=== PATIENT | male | born 1960 | race Caucasian/White ===

== ENCOUNTER → 2016-10-31 | Outpatient (CLI) | payer BC ==
[2016-10-31 05:26] LABS: ABSOLUTE BASOPHILS # (AUTO) 0.1 10^3/uL (0.0-0.2); ABSOLUTE EOSINOPHILS # (AUTO) 0.4 10^3/uL (0.0-0.6); ABSOLUTE LYMPHOCYTES (AUTO) 2.7 10^3/uL (0.5-4.7); ABSOLUTE MONOCYTES (AUTO) 0.7 10^3/uL (0.1-1.4); ABSOLUTE NEUT (AUTO) 4.6 10^3/uL (1.7-8.2); BASOPHILS % (AUTO) 1.2 % (0-2); EOSINOPHILS % (AUTO) 4.4 % (0-6); HEMATOCRIT 37.8 % (37.9-51.0); HEMOGLOBIN 13.2 g/dL (13.5-17.0); HGB HCT DIFFERENCE 1.8; LYMPHOCYTES % (AUTO) 31.5 % (13-45); MEAN CORPUSCULAR HEMOGLOBIN 32.5 pg (27.0-33.4); MEAN CORPUSCULAR HGB CONC 34.9 g/dL (32.0-36.0); MEAN CORPUSCULAR VOLUME 93 fl (80-97); MONOCYTES % (AUTO) 8.2 % (3-13); RED BLOOD COUNT 4.07 10^6/uL (4.35-5.55); RED CELL DISTRIBUTION WIDTH 12.7 % (11.5-14.0); SEGMENTED NEUTROPHILS % (AUTO) 54.7 % (42-78); WHITE BLOOD COUNT 8.4 10^3/uL (4.0-10.5)
[2016-10-31 05:59] LABS: ALANINE AMINOTRANSFERASE 43 U/L (21-72); ALBUMIN 4.2 g/dL (3.5-5.0); ALKALINE PHOSPHATASE 85 U/L (38-126); ANION GAP 12 (5-19); ASPARTATE AMINO TRANSFERASE 35 U/L (17-59); BILIRUBIN,TOTAL 0.6 mg/dL (0.2-1.3); BLOOD UREA NITROGEN 14 mg/dL (7-20); CALCIUM 9.5 mg/dL (8.4-10.2); CARBON DIOXIDE 23 mmol/L (22-30); CHLORIDE 108 mmol/L (98-107); CHOLESTEROL 295.18 mg/dL (0-200); CREATININE RESULT 0.71 mg/dL (0.52-1.25); Direct HDL 44 mg/dL (>40); GLUCOSE 101 mg/dL (75-110); POTASSIUM 4.2 mmol/L (3.6-5.0); SODIUM 142.6 mmol/L (137-145); TOTAL PROTEIN 7.3 g/dL (6.3-8.2); TRIGLYCERIDES 501 mg/dL (<150)
[2016-10-31 06:10] LABS: DIRECT LDL 123 mg/dL (<100)
== END ==
LOC: LAB 05:14
PROVIDERS: ATTEND Internal Medicine
DX: I10 Essential (primary) hypertension (principal); E78.00 Pure hypercholesterolemia, unspecified; Z12.5 Encounter for screening for malignant neoplasm of prostate; Z79.899 Other long term (current) drug therapy
CPT/HCPCS: 36415; 80053; 80061; 84153; 85025

== ENCOUNTER 2017-05-23 19:38 | Observation (INO) | payer OTHER, BC ==
[2017-05-23] MEDS ORDERED: ASPIRIN 81 MG TABLET, CHEWABLE PO ONE (19:41)
[2017-05-23 20:22] LABS: ABSOLUTE BASOPHILS # (AUTO) 0.1 10^3/uL (0.0-0.2); ABSOLUTE EOSINOPHILS # (AUTO) 0.3 10^3/uL (0.0-0.6); ABSOLUTE LYMPHOCYTES (AUTO) 2.6 10^3/uL (0.5-4.7); ABSOLUTE MONOCYTES (AUTO) 0.6 10^3/uL (0.1-1.4); ABSOLUTE NEUT (AUTO) 6.1 10^3/uL (1.7-8.2); BASOPHILS % (AUTO) 0.7 % (0-2); EOSINOPHILS % (AUTO) 3.4 % (0-6); HEMATOCRIT 36.4 % (37.9-51.0); HEMOGLOBIN 12.8 g/dL (13.5-17.0); LYMPHOCYTES % (AUTO) 27.2 % (13-45); MEAN CORPUSCULAR HEMOGLOBIN 32.8 pg (27.0-33.4); MEAN CORPUSCULAR HGB CONC 35.1 g/dL (32.0-36.0); MEAN CORPUSCULAR VOLUME 94 fl (80-97); MONOCYTES % (AUTO) 6.1 % (3-13); RED CELL DISTRIBUTION WIDTH 12.9 % (11.5-14.0); SEGMENTED NEUTROPHILS % (AUTO) 62.6 % (42-78); WHITE BLOOD COUNT 9.7 10^3/uL (4.0-10.5)
--- NOTE | 2017-05-23 20:30 | RADIOLOGY REPORT (SQ) ---
EXAM DESCRIPTION: CHEST SINGLE VIEW COMPLETED DATE/TIME: 05/23/2017 8:20 pm REASON FOR STUDY: chest pain COMPARISON: 10/14/2015 EXAM PARAMETERS: NUMBER OF VIEWS: One view. TECHNIQUE: Single frontal radiographic view of the chest acquired. RADIATION DOSE: NA LIMITATIONS: None. FINDINGS: LUNGS AND PLEURA: No opacities, masses or pneumothorax. No pleural effusion. MEDIASTINUM AND HILAR STRUCTURES: No masses. Contour normal. HEART AND VASCULAR STRUCTURES: Heart normal in size. Normal vasculature. BONES: No acute findings. HARDWARE: None in the chest. OTHER: No other significant finding. IMPRESSION: NO ACUTE RADIOGRAPHIC FINDING IN THE CHEST. TECHNICAL DOCUMENTATION: JOB ID: [id number]
--- NOTE | 2017-05-23 20:34 | ER Document Report ---
ED Medical Screen (RME) - General Chief Complaint: Chest Pain > 30 Stated Complaint: CHEST PAIN Time Seen by Provider: 05/23/17 20:32 Notes: Patient has left-sided chest pain since yesterday. He states it is worse with yawning or a deep breath. He denies any type of infection symptoms such as cough congestion or rhinorrhea. No vomiting or diarrhea. He states he had a heart catheterization about 10 years ago that was unremarkable. TRAVEL OUTSIDE OF THE [place] IN LAST 30 DAYS: No - Related Data Allergies/Adverse Reactions: No Known Drug Allergies Allergy (Verified 05/23/17 19:50) Past Medical History - Past Medical History Cardiac Medical History: Reports: Hx Coronary Artery Disease - HIGH CHOLESTEROL , Hx Hypercholesterolemia, Hx Hypertension Denies: Hx Heart Attack Pulmonary Medical History: Denies: Hx Asthma, Hx Bronchitis, Hx COPD, Hx Pneumonia Neurological Medical History: Denies: Hx Cerebrovascular Accident, Hx Seizures Renal/ Medical History: Denies: Hx Peritoneal Dialysis Musculoskeltal Medical History: Denies Hx Arthritis - Immunizations Hx Diphtheria, Pertussis, Tetanus Vaccination: Yes Physical Exam - Vital signs Vitals: Temp Pulse Resp BP Pulse Ox 99 F 86 14 159/94 H 98 05/23/17 19:52 05/23/17 19:52 05/23/17 19:52 05/23/17 19:52 05/23/17 19:52 Course - Vital Signs Vital signs: Temp Pulse Resp BP Pulse Ox 99 F 86 14 159/94 H 98 05/23/17 19:52 05/23/17 19:52 05/23/17 19:52 05/23/17 19:52 05/23/17 19:52 - Laboratory Result Diagrams: 05/23/17 20:05 05/23/17 20:05 Laboratory results interpreted by me: 05/23/17 20:05 RBC 3.90 L Hgb 12.8 L Hct 36.4 L
[2017-05-23 20:41] LABS: ALANINE AMINOTRANSFERASE 61 U/L (21-72); ALBUMIN 4.4 g/dL (3.5-5.0); ALKALINE PHOSPHATASE 91 U/L (38-126); ANION GAP 14 (5-19); ASPARTATE AMINO TRANSFERASE 39 U/L (17-59); BILIRUBIN,DIRECT 0.3 mg/dL (0.0-0.4); BILIRUBIN,TOTAL 0.4 mg/dL (0.2-1.3); BLOOD UREA NITROGEN 17 mg/dL (7-20); CALCIUM 9.6 mg/dL (8.4-10.2); CARBON DIOXIDE 23 mmol/L (22-30); CHLORIDE 105 mmol/L (98-107); CREATINE KINASE 74 U/L (55-170); CREATININE RESULT 0.69 mg/dL (0.52-1.25); GLUCOSE 148 mg/dL (75-110); SODIUM 142.1 mmol/L (137-145); TOTAL PROTEIN 7.2 g/dL (6.3-8.2)
[2017-05-23 20:52] LABS: CREATINE KINASE MB 1.93 ng/mL (<4.55)
[2017-05-23 20:54] LABS: TROPONIN I < 0.012 ng/mL
--- NOTE | 2017-05-24 01:55 | RADIOLOGY REPORT (SQ) ---
EXAM DESCRIPTION: CTA CHEST COMPLETED DATE/TIME: 05/24/2017 1:32 am REASON FOR STUDY: left chest pain stated pain increases with yawn and deep breath COMPARISON: None. TECHNIQUE: CT scan of the chest performed using helical scanning technique with dynamic intravenous contrast injection. Images reviewed with lung, soft tissue and bone windows. Reconstructed coronal and sagittal MPR images reviewed. Additional 3 dimensional post-processing performed to develop Maximal Intensity Projection images (MD P). All images stored on PACS. All CT scanners at this facility use dose modulation, iterative reconstruction, and/or weight based d osing when appropriate to reduce radiation dose to as low as reasonably achievable (ALARA). [facility]: Dose Right [facility]: CareDose [facility]: Dose Right [facility]: Teradose 4D [facility]: Go Long Wireless CONTRAST TYPE AND DOSE: contrast/concentration: Isovue 370.00 mg/ml; Total Contrast Delivered: 100.0 ml; Total Saline Delivered: 55.0 ml Contrast bolus optimized for the pulmonary arteries. Not diagnostic for the aorta. RENAL FUNCTION: Creatinine 0.7 RADIATION DOSE: Up-to-date CT equipment and radiation dose reduction techniques were employed. CTDIv ol: 31.1 mGy. DLP: 1077 mGy-cm. . LIMITATIONS: None. FINDINGS: LUNGS AND PLEURA: No masses, infiltrates, pneumothorax. No pleural effusions, calcificati ons. Mild mixed predominantly paraseptal emphysema. Small atelectasis and/ or fibrosis of bilateral lung bases with mild right basilar bronchiectasis. AORTA AND GREAT VESSELS: No aneurysm. Contrast bolus not optimized for the aorta. HEART: No pericardial effusion. No significant coronary artery calcifications. PULMONARY ARTERIES: No emboli visualized in the main pulmonary arteries or the segmental branches. HILAR AND MEDIASTINAL STRUCTURES: No identified masses or abnormal nodes. Small coronary arterial ca lcification HARDWARE: None in the chest. UPPER ABDOMEN: Mild left perinephric fat stranding; right kidney is not imaged. THYROID AND OTHER SOFT TISSUES: No masses. No adenopathy. BONES: No acute or significant finding. Mild disc desiccation. 3D MIPS: Confirm above findings. OTHER: No other significant finding. IMPRESSION: No acute cardiopulmonary findings. No evidence of pulmonary emboli. Mild pulmonary emp hysema pattern. Small right basilar fibrosis. COMMENT: Quality ID # [id number]: Final reports with documentation of one or more dose reduction techniques (e.g., Automated exposure control, adjustment of the mA and/or kV according to patient size, use of iterative reconstruction technique) TECHNICAL DOCUMENTATION: JOB ID: [id number] [employer]- All Rights Reserved
[2017-05-24] MEDS ORDERED: IPRATROPIUM/ALBUTEROL 0.5-2.5 MG/3 ML AMPUL NEB ONE (02:24)
--- NOTE | 2017-05-24 02:36 | ER Document Report ---
ED General - General Chief Complaint: Chest Pain > 30 Stated Complaint: CHEST PAIN Time Seen by Provider: 05/23/17 20:32 Mode of Arrival: Ambulatory Information source: Patient Notes: This is a 57-year-old man with a history of hypertension and dyslipidemia presents to the emergency room with chest pain left-sided on and off for the past 24 hours associated with shortness of breath. The patient does state that he was recently traveling to [place] by car on Tuesday and returned the following Tuesday. He states one day later, he started getting left-sided chest pain associated with shortness of breath. The patient has 3 brothers and 3 sisters. He has 1 brother with a history of an [place] (the patient is the oldest brother) and his father at the age of 65 from an [place]. TRAVEL OUTSIDE OF THE [place] IN LAST 30 DAYS: No - HPI Onset: Yesterday Onset/Duration: Gradual Quality of pain: Dull Severity: Moderate Pain Level: 3 Associated symptoms: Chest pain - 15 minutes ago. denies: Fever, Shortness of breath Exacerbated by: Denies Relieved by: Denies Similar symptoms previously: No Recently seen / treated by doctor: No - Related Data Allergies/Adverse Reactions: No Known Drug Allergies Allergy (Verified 05/23/17 19:50) Past Medical History - General Information source: Patient - Social History Smoking Status: Former Smoker Cigarette use (# per day): No - Patient stopped 1 month ago Chew tobacco use (# tins/day): No Smoking Education Provided: No Frequency of alcohol use: None Drug Abuse: None Lives with: Family Family History: Reviewed & Not Pertinent Patient has suicidal ideation: No Patient has homicidal ideation: No - Past Medical History Cardiac Medical History: Reports: Hx Coronary Artery Disease - HIGH CHOLESTEROL , Hx Hypercholesterolemia, Hx Hypertension Denies: Hx Heart Attack Pulmonary Medical History: Denies: Hx Asthma, Hx Bronchitis, Hx COPD, Hx Pneumonia Neurological Medical History: Denies: Hx Cerebrovascular Accident, Hx Seizures Renal/ Medical History: Denies: Hx Peritoneal Dialysis Musculoskeltal Medical History: Denies Hx Arthritis Surgical Hx: Negative - Immunizations Hx Diphtheria, Pertussis, Tetanus Vaccination: Yes Review of Systems - Review of Systems Constitutional: denies: Chills, Fever EENT: No symptoms reported Cardiovascular: Chest pain Respiratory: No symptoms reported Gastrointestinal: No symptoms reported Genitourinary: No symptoms reported Male Genitourinary: No symptoms reported Musculoskeletal: No symptoms reported Skin: No symptoms reported Hematologic/Lymphatic: No symptoms reported Neurological/Psychological: No symptoms reported Physical Exam - Vital signs Vitals: Temp Pulse Resp BP Pulse Ox 99 F 86 14 159/94 H 98 05/23/17 19:52 05/23/17 19:52 05/23/17 19:52 05/23/17 19:52 05/23/17 19:52 Notes: Physical exam: GENERAL: 57-year-old man, alert and oriented 3, no acute distress HEAD: Atraumatic, normocephalic. EYES: Pupils equal round and reactive to light, extraocular movements intact, sclera anicteric, conjunctiva are normal. ENT: TMs normal, nares patent, oropharynx clear without exudates. Moist mucous membranes. NECK: Normal range of motion, supple without obvious mass or JVD. LUNGS: Breath sounds clear to auscultation bilaterally and equal. No wheezes rales or rhonchi. HEART: Regular rate and rhythm without murmurs, rubs or gallops. ABDOMEN: Soft, normoactive bowel sounds. No tenderness to palpation. No guarding, no rebound. No masses appreciated. EXTREMITIES: Normal range of motion, no pitting or edema. No clubbing or cyanosis. NEUROLOGICAL: Cranial nerves II through XII grossly intact. Normal speech, moving all extremities. PSYCH: Normal mood, normal affect. SKIN: Warm, Dry, normal turgor, no rashes or lesions noted. Course - Vital Signs Vital signs: Temp Pulse Resp BP Pulse Ox 99 F 86 20 145/89 H 98 05/23/17 19:52 05/23/17 19:52 05/24/17 01:01 05/24/17 01:01 05/24/17 01:03 - Laboratory Result Diagrams: 05/23/17 20:05 05/23/17 20:05 Laboratory results interpreted by me: 05/23/17 05/23/17 20:05 20:05 RBC 3.90 L Hgb 12.8 L Hct 36.4 L Glucose 148 H - Diagnostic Test Radiology reviewed: Image reviewed, Reports reviewed - CTA shows no pulmonary emboli - EKG Interpretation by Me Rate: Normal Rhythm: NSR - EKG shows normal sinus rhythm with a ventricular rate of 87, no acute ST-T wave changes Discharge - Discharge Clinical Impression: Chest pain Condition: Stable Disposition: ADMITTED OBSERVATION Admitting Provider: Hospitalist - Dr. Quan Unit Admitted: Telemetry Referrals: JEREMIAS RESENDEZ MD [Primary Care Provider] - Follow up as needed
[2017-05-24] MEDS ORDERED: ACETAMINOPHEN 325 MG TABLET PO PRN ×2 (04:43→08:16)
[2017-05-24] MEDS ORDERED: PROMETHAZINE HCL 25 MG TABLET PO PRN (04:43)
[2017-05-24 06:22] LABS: CHOLESTEROL 186.83 mg/dL (0-200); Direct HDL 48 mg/dL (>40); TRIGLYCERIDES 121 mg/dL (<150)
[2017-05-24 06:32] LABS: DIRECT LDL 100 mg/dL (<100)
--- NOTE | 2017-05-24 08:09 | EKG REPORT ---
SEVERITY:- NORMAL ECG - SINUS RHYTHM : Confirmed by: Jay Aldridge MD 24-May-2017 08:08:45
[2017-05-24] MEDS ORDERED: DEXTROSE 50%-WATER 25 GM/50 ML DISP.SYRIN IV PRN ×2 (08:16)
[2017-05-24] MEDS ORDERED: ONDANSETRON HCL INJ/PF 4 MG/2 ML SDV IV PRN (08:16)
[2017-05-24] MEDS ORDERED: GLUCAGON,HUMAN RECOMB 1 MG INJ SUBCUT PRN (08:16)
[2017-05-24] MEDS ORDERED: DEXTROSE 40% GEL 15 GM TUBE PO PRN ×2 (08:16)
[2017-05-24] MEDS ORDERED: IBUPROFEN 800 MG TABLET PO ONE (09:00)
[2017-05-24] MEDS: ASPIRIN 81 MG TABLET, ENT COATED PO SCH (09:38)
[2017-05-24] MEDS: VARENICLINE TARTRATE 1 MG TABLET PO SCH ×2 (09:38→21:16)
--- NOTE | 2017-05-24 13:18 | EKG REPORT ---
SEVERITY:- NORMAL ECG - SINUS RHYTHM : Confirmed by: Jay Aldridge MD 24-May-2017 13:17:59
[2017-05-24] MEDS: IBUPROFEN 800 MG TABLET PO SCH ×2 (13:59→21:16)
--- NOTE | 2017-05-24 16:35 | PDOC H&P ---
History of Present Illness Admission Date/PCP: 05/24/17 08:16 JEREMIAS RESENDEZ MD Patient complains of: Chest pain History of Present Illness: PABLO KHALIL is a 57 year old male who presents with a 24 history of chest pain. Patient reports the chest pain is left sided. It is worse when he takes a breath and but does not radiate. He did recently travel from [place] in a car. He had a CTA that was negative for pulmonary embolism. The patient has a family history of coronary artery disease and had a cardiac catheterization about 10 years ago and it was normal by his report. The patient denied any change with exertion. He did have pain if he twisted. He has recently been working bent over reaching under sink and this may have been a contributing factor. He denies any palpitations. He denies any orthopnea or PND. Patient is admitted for further evaluation of this chest pain. Past Medical History Cardiac Medical History: Reports: Coronary Artery Disease - Patient reports a normal cardiac catheterization about 10 years ago., Hyperlipidema, Hypertension Denies: Myocardial Infarction Pulmonary Medical History: Denies: Asthma, Bronchitis, Chronic Obstructive Pulmonary Disease (COPD), Pneumonia Neurological Medical History: Denies: Seizures Endocrine Medical History: Reports: None Malignancy Medical History: Reports: None GI Medical History: Reports: None Musculoskeltal Medical History: Denies: Arthritis Skin Medical History: Reports: None Psychiatric Medical History: Reports: None Hematology: Denies: Anemia Infectious Medical History: Reports: None Past Surgical History Past Surgical History: Reports: None Social History Information Source: Patient Lives with: Family Smoking Status: Former Smoker Frequency of Alcohol Use: Social Hx Recreational Drug Use: No Drugs: None Hx Prescription Drug Abuse: No - Advance Directive Resuscitation Status: Full Code Family History Family History: Father at age 65 with coronary artery disease. Mother is 80 alive and has coronary artery disease. Parental Family History Reviewed: Yes Children Family History Reviewed: No Sibling(s) Family History Reviewed.: No Medication/Allergy Home Medications: Atorvastatin Calcium [Lipitor 40 mg Tablet] 40 mg PO QHS #30 tablet 09/29/15 Varenicline Tartrate [Chantix 1 Mg Tablet] 1 mg PO Q12 05/24/17 Allergies/Adverse Reactions: No Known Drug Allergies Allergy (Verified 05/23/17 19:50) Review of Systems Constitutional: ABSENT: chills, fever(s), headache(s), weight gain, weight loss Eyes: ABSENT: visual disturbances Ears: ABSENT: hearing changes Cardiovascular: PRESENT: as per HPI, chest pain. ABSENT: dyspnea on exertion, edema, orthropnea, palpitations Respiratory: ABSENT: cough, hemoptysis Gastrointestinal: ABSENT: abdominal pain, constipation, diarrhea, hematemesis, hematochezia, nausea, vomiting Genitourinary: ABSENT: dysuria, hematuria Musculoskeletal: ABSENT: joint swelling Integumentary: ABSENT: rash, wounds Neurological: ABSENT: abnormal gait, abnormal speech, confusion, dizziness, focal weakness, syncope Psychiatric: ABSENT: anxiety, depression, homidical ideation, suicidal ideation Endocrine: ABSENT: cold intolerance, heat intolerance, polydipsia, polyuria Hematologic/Lymphatic: ABSENT: easy bleeding, easy bruising Physical Exam Vital Signs: Temp Pulse Resp BP Pulse Ox 98.6 F 67 16 147/81 H 97 05/24/17 12:13 05/24/17 14:00 05/24/17 12:13 05/24/17 12:13 05/24/17 12:13 General appearance: PRESENT: no acute distress, well-developed, well-nourished Head exam: PRESENT: atraumatic, normocephalic Eye exam: PRESENT: conjunctiva pink, EOMI, PERRLA. ABSENT: scleral icterus Ear exam: PRESENT: normal external ear exam Mouth exam: PRESENT: moist, tongue midline Neck exam: ABSENT: carotid bruit, JVD, lymphadenopathy, thyromegaly Respiratory exam: PRESENT: clear to auscultation rohan. ABSENT: rales, rhonchi, wheezes Cardiovascular exam: PRESENT: RRR. ABSENT: diastolic murmur, rubs, systolic murmur Pulses: PRESENT: normal dorsalis pedis pul Vascular exam: PRESENT: normal capillary refill GI/Abdominal exam: PRESENT: normal bowel sounds, soft. ABSENT: distended, guarding, mass, organolmegaly, rebound, tenderness Rectal exam: PRESENT: deferred Extremities exam: PRESENT: full ROM. ABSENT: calf tenderness, clubbing, pedal edema Neurological exam: PRESENT: alert, awake, oriented to person, oriented to place , oriented to time, oriented to situation, CN II-XII grossly intact. ABSENT: motor sensory deficit Psychiatric exam: PRESENT: appropriate affect Skin exam: PRESENT: dry, intact, warm. ABSENT: cyanosis, rash Results Laboratory Results: 05/24/17 12:18 Troponin I < 0.012 EKG Comments: No acute EKG changes. Impressions: Chest X-Ray 05/23/17 19:41 IMPRESSION: NO ACUTE RADIOGRAPHIC FINDING IN THE CHEST. Chest/Abdomen CTA 05/24/17 00:44 IMPRESSION: No acute cardiopulmonary findings. No evidence of pulmonary emboli. Mild pulmonary emphysema pattern. Small right basilar fibrosis. Assessment & Plan - Diagnosis (1) Chest pain Is this a current diagnosis for this admission?: Yes Plan: The patient's chest pain appears to be related to movement. Most likely represents costochondritis. He does have some risk factors with hypertension and hyperlipidemia and family history. Because of that we will monitor on telemetry and obtain a stress test to rule out coronary artery disease. (2) Hypertension Is this a current diagnosis for this admission?: Yes Plan: Patient is not chronically on antihypertensives. We will continue to monitor. (3) Hypercholesteremia Is this a current diagnosis for this admission?: Yes Plan: Continue with Lipitor. - Time Time Spent: 50 to 70 Minutes - Plan Summary Plan Summary: We will admit as observation. I anticipate this require less than a 2 midnight hospital stay.
[2017-05-24] MEDS ORDERED: ATORVASTATIN CALCIUM 40 MG TABLET PO SCH (22:00)
[2017-05-25] MEDS: IBUPROFEN 800 MG TABLET PO SCH ×2 (06:01→13:34)
[2017-05-25] MEDS: ASPIRIN 81 MG TABLET, ENT COATED PO SCH (10:51)
[2017-05-25] MEDS: VARENICLINE TARTRATE 1 MG TABLET PO SCH (10:51)
[2017-05-25] MEDS ORDERED: AMINOPHYLLINE INJ/PF 250 MG/10 ML SDV IV ONE (11:27)
[2017-05-25] MEDS ORDERED: REGADENOSON INJ 0.4 MG/5 ML DISP.SYRIN IV ONE (11:27)
--- NOTE | 2017-05-25 13:20 | DRAGON STRESS TEST REPORT ---
INTRAVENOUS LEXISCAN CARDIOLITE STRESS TEST USING SINGLE PHOTON EMMISION COMPUTERIZED TOMOGRAPHIC. DATE OF PROCEDURE: May 25, 2017 INDICATION : Chest pain CARDIAC RISK FACTORS: Diabetes, hypertension, dyslipidemia RESTING EKG: Sinus rhythm, no baseline ST-T wave changes noted STRESS EKG: No significant changes noted with LexiScan bolus REASON FOR TERMINATION: Protocol. PROCEDURE REPORT: Baseline heart rate 76 beats per minute with blood pressure of 142/92. Patient had no significant complaints. Heart rate at 2 minutes post bolus 104 with a blood pressure of 124/79. 3 minutes post bolus heart rate 85 with blood pressure of 143/81. No significant EKG changes were noted. Patient had no significant complaints during the procedure or postprocedure. Patient injected with Aminophyllin 75 mg at 3 minutes or later after Lexiscan bolus. CONCLUSIONS: Normal EKG and hemodynamic response to IV LexiScan. NUCLEAR DATA: At rest the patient was given 13.49 millicuries of technetium 99 sestamibi injected intravenously. As per protocol rest gated SPECT images were obtained. Subsequently the patient was given intravenous LexiScan at a dose of 0.4 mg in 5 mL intravenously, followed by flush with normal saline. Subsequently the stress dose of 45.0 millicuries of technetium 99 sestamibi was injected intravenously. As per protocol stress gated images were obtained. NUCLEAR INTERPRETATION: Both raw and processed data were used for interpretation. Visual, qualitative, computer-generated quantitative data was used. There was good myocardial uptake of technetium compound. Motion artifact and soft tissue attenuations were noted. Increased visceral uptake was noted. No definitive areas of transient perfusion defect noted. No definitive areas of fixed perfusion defect or scars noted. EKG gated imaging showed LV EF at 65 %, rest and stress gated EF similar visually. T. I D. ratio was 1.00. Lung heart ratio noted to be within normal limits 0.31. No significant extracardiac and abnormal radiotracer activities were noted. RV free wall uptake was noted to be mildly increased. IMPRESSION: Also refer to comments under nuclear interpretation. Also test results needs to be interpreted in the context of pretest probability. 1. There is no definitive scintigraphic evidence of LexiScan induced myocardial ischemia. 2. There is no definitive scintigraphic evidence of myocardial infarction/scar. 3. EKG gated imaging shows left ventricular ejection fraction of approximately 65 %. 4. Clinical correlation requested as occasionally single vessel disease or balanced ischemia could be missed. In approximately 10% of the cases Lexiscan may not cause adequate vasodilatory stress. RECOMMENDATIONS: Aggressive risk factor modification, medical therapy. Clinical correlation with echocardiogram derived ejection fraction. Inability to exercise by itself can lead to increased cardiovascular event risks. Consider cardiology consultation and or follow-up if clinically indicated. I AM AVAILABLE FOR CARDIOLOGY CONSULTATION AND FOLLOWUP IF REQUESTED BY PMD Ha Cruz M.D., WILLIAM Central Office Equipment Engineer medical office assistant instructor, Board certified in cardiovascular diseases, Nuclear cardiology, Echocardiography Cardiac CT and cardiac MRI Ph. [phone] [facility]
[2017-05-25 13:56] VITALS: BP 146/99
--- NOTE | 2017-05-25 14:20 | PDOC DISCHARGE SUMMARY ---
General - Admit/Disc Date/PCP Admission Date/Primary Care Provider: 05/24/17 08:16 JEREMIAS RESENDEZ MD Discharge Date: 05/25/17 - Discharge Diagnosis (1) Chest pain Is this a current diagnosis for this admission?: Yes Summary: Secondary to musculoskeletal pain (2) Hypertension Is this a current diagnosis for this admission?: Yes (3) Hypercholesteremia Is this a current diagnosis for this admission?: Yes - Additional Information Resuscitation Status: Full Code Discharge Diet: Regular Discharge Activity: Activity As Tolerated Home Medications: Atorvastatin Calcium [Lipitor 40 mg Tablet] 40 mg PO QHS #30 tablet 09/29/15 Varenicline Tartrate [Chantix 1 mg Tablet] 1 mg PO Q12 05/24/17 Aspirin [Ecotrin 81 mg EC Tablet] 81 mg PO DAILY tabec 05/25/17 History of Present Illness History of Present Illness: PABLO KHALIL is a 57 year old male who presents with a 24 history of chest pain. Patient reports the chest pain is left sided. It is worse when he takes a breath and but does not radiate. He did recently travel from [place] in a car. He had a CTA that was negative for pulmonary embolism. The patient has a family history of coronary artery disease and had a cardiac catheterization about 10 years ago and it was normal by his report. The patient denied any change with exertion. He did have pain if he twisted. He has recently been working bent over reaching under sink and this may have been a contributing factor. He denies any palpitations. He denies any orthopnea or PND. Patient is admitted for further evaluation of this chest pain. Hospital Course Hospital Course: 57-year-old male admitted with atypical chest pain. Patient was monitored on telemetry and had no cardiac arrhythmias. Patient had negative troponins and then underwent a Cardiolite stress test. The stress test showed no evidence for reversible ischemia. Patient was started on ibuprofen because of the presumed musculoskeletal nature of the pain and is completely resolved the pain. Patient is instructed to use ibuprofen as needed. His other medical problems were stable during this hospitalization. Patient is discharged home. Physical Exam Vital Signs: Temp Pulse Resp BP Pulse Ox 98.3 F 91 16 146/99 H 98 05/25/17 13:48 05/25/17 13:48 05/25/17 13:48 05/25/17 13:48 05/25/17 13:48 Intake & Output 05/24/17 05/25/17 05/26/17 06:59 06:59 06:59 Intake Total 940 591 Balance 940 591 Weight 106 kg General appearance: PRESENT: no acute distress Eye exam: PRESENT: conjunctiva pink. ABSENT: scleral icterus Ear exam: PRESENT: normal external ear exam Mouth exam: PRESENT: moist, tongue midline Neck exam: ABSENT: JVD Respiratory exam: PRESENT: clear to auscultation rohan. ABSENT: rales, rhonchi, wheezes Cardiovascular exam: PRESENT: RRR. ABSENT: diastolic murmur, rubs, systolic murmur GI/Abdominal exam: PRESENT: normal bowel sounds, soft. ABSENT: distended, guarding, mass, organolmegaly, rebound, tenderness Extremities exam: ABSENT: calf tenderness, clubbing, pedal edema Neurological exam: PRESENT: alert, awake, oriented to person, oriented to place , oriented to time, oriented to situation, CN II-XII grossly intact. ABSENT: motor sensory deficit Psychiatric exam: PRESENT: appropriate affect Skin exam: PRESENT: dry, intact, warm. ABSENT: cyanosis, rash Results Laboratory Results: 05/24/17 12:18 Troponin I < 0.012 Impressions: Chest X-Ray 05/23/17 19:41 IMPRESSION: NO ACUTE RADIOGRAPHIC FINDING IN THE CHEST. Chest/Abdomen CTA 05/24/17 00:44 IMPRESSION: No acute cardiopulmonary findings. No evidence of pulmonary emboli. Mild pulmonary emphysema pattern. Small right basilar fibrosis. Qualifiers PATEINT BEING DISCHARGED WITH ANY OF THE FOLLOWING DIAGNOSIS?: No Plan Discharge Plan: Patient is discharged home in stable condition. Follow-up with primary care in 2 weeks. Time Spent: Less than 30 Minutes
== END 2017-05-25 14:25 | disposition home or self-care (01) ==
LOC: ER 19:38 → UNDOADMOB 05-24 02:41 → EH 05-24 02:41 → 4W 05-24 05:04 → EH 05-24 05:04 → 4W 05-24 08:16
PROVIDERS: ADMIT Family Medicine; ATTEND Family Medicine
PROC: 3E0F7GC Introduction of Other Therapeutic Substance into Respiratory Tract, Via Natural or Artificial Opening (ICD-10-PCS; principal; 2017-05-23)
DX: R07.89 Other chest pain (principal); I10 Essential (primary) hypertension; E78.00 Pure hypercholesterolemia, unspecified; R06.02 Shortness of breath; I25.10 Atherosclerotic heart disease of native coronary artery without angina pectoris; Z79.82 Long term (current) use of aspirin; Z79.899 Other long term (current) drug therapy; Z82.49 Family history of ischemic heart disease and other diseases of the circulatory system; Z87.891 Personal history of nicotine dependence
CPT/HCPCS: 93005 ×2; 94640; 99285; 36415 ×2; 82553; 82550; 85025; 80053; 84484 ×2; 80061; 93017; 71010; 78452; 71275; 93010 ×2; G0378 ×2; A9500; J2785; J3490 ×2; J0280; J7620; Q9969

== ENCOUNTER 2019-10-19 20:58 | Emergency (ER) | payer OTHER, BC ==
[2019-10-19] MEDS ORDERED: ONDANSETRON HCL INJ/PF 4 MG/2 ML SDV IV ONE (21:44)
[2019-10-19] MEDS ORDERED: MORPHINE SULFATE 10 MG/ML INJ IV ONE (21:45)
--- NOTE | 2019-10-19 21:47 | ER Document Report ---
ED Medical Screen (RME) - General Chief Complaint: Abdominal Pain Stated Complaint: NAUSEA,HEADACHE,ABDOMINAL PAIN Time Seen by Provider: 10/19/19 21:39 Primary Care Provider: JEREMIAS RESENDEZ MD [Primary Care Provider] - Follow up as needed Notes: HPI: 59-year-old male presenting to the emergency department complaining of mid abdominal pain that began this morning with nausea and vomiting. No diarrhea. No definite fever but has had chills. No history of abdominal surgeries per the patient I have greeted and performed a rapid initial assessment of this patient. A comprehensive ED assessment and evaluation of the patient, analysis of test results and completion of the medical decision making process will be conducted by additional ED providers PHYSICAL EXAMINATION: GENERAL: Well-appearing, well-nourished and in mild acute distress. HEAD: Atraumatic, normocephalic. EYES: sclera anicteric, conjunctiva are normal. ENT: Slightly dry mucous membranes. NECK: Normal range of motion LUNGS: Normal work of breathing, clear to auscultation HEART: 2+ radial pulses bilaterally, regular rate and rhythm ABD: limited by positioning for exam in triage. Mild abdominal pain through the lower abdomen and periumbilical region on palpation EXTREMITIES: no pitting or edema. No cyanosis. NEUROLOGICAL: No focal neurological deficits. Moves all extremities spontaneously and on command. PSYCH: Normal mood, normal affect. SKIN: Warm, Dry, normal turgor, no rashes or lesions noted. TRAVEL OUTSIDE OF THE [place] IN LAST 30 DAYS: No - Related Data Allergies/Adverse Reactions: No Known Drug Allergies Allergy (Verified 05/23/17 19:50) Past Medical History - Past Medical History Cardiac Medical History: Reports: Hx Coronary Artery Disease - Patient reports a normal cardiac catheterization about 10 years ago., Hx Hypercholesterolemia, Hx Hypertension Denies: Hx Heart Attack Pulmonary Medical History: Denies: Hx Asthma, Hx Bronchitis, Hx COPD, Hx Pneumonia Neurological Medical History: Denies: Hx Cerebrovascular Accident, Hx Seizures Renal/ Medical History: Denies: Hx Peritoneal Dialysis Musculoskeltal Medical History: Denies Hx Arthritis - Immunizations Hx Diphtheria, Pertussis, Tetanus Vaccination: Yes Physical Exam - Vital signs Vitals: Temp Pulse Resp BP Pulse Ox 99.2 F 112 H 20 146/81 H 95 10/19/19 21:16 10/19/19 21:16 10/19/19 21:16 10/19/19 21:16 10/19/19 21:16 Course - Vital Signs Vital signs: Temp Pulse Resp BP Pulse Ox 99.2 F 112 H 20 146/81 H 95 10/19/19 21:16 10/19/19 21:16 10/19/19 21:16 10/19/19 21:16 10/19/19 21:16 Doctor's Discharge - Discharge Referrals: JEREMIAS RESENDEZ MD [Primary Care Provider] - Follow up as needed
[2019-10-19 22:25] LABS: HEMATOCRIT 40.9 % (37.9-51.0); HEMOGLOBIN 13.8 g/dL (13.5-17.0); MEAN CORPUSCULAR HEMOGLOBIN 30.7 pg (27.0-33.4); MEAN CORPUSCULAR HGB CONC 33.8 g/dL (32.0-36.0); MEAN CORPUSCULAR VOLUME 91 fl (80-97); PLATELET COUNT 279 10^3/uL (150-450); RED CELL DISTRIBUTION WIDTH 13.4 % (11.5-14.0)
[2019-10-19 22:45] LABS: ALBUMIN 4.6 g/dL (3.5-5.0); ALKALINE PHOSPHATASE 87 U/L (38-126); ANION GAP 13 (5-19); ASPARTATE AMINO TRANSFERASE 33 U/L (17-59); BILIRUBIN,DIRECT 0.3 mg/dL (0.0-0.4); BILIRUBIN,TOTAL 0.6 mg/dL (0.2-1.3); BLOOD UREA NITROGEN 15 mg/dL (7-20); CALCIUM 9.5 mg/dL (8.4-10.2); CARBON DIOXIDE 23 mmol/L (22-30); CHLORIDE 105 mmol/L (98-107); GLUCOSE 160 mg/dL (75-110); POTASSIUM 4.3 mmol/L (3.6-5.0); TOTAL PROTEIN 8.4 g/dL (6.3-8.2)
[2019-10-19 22:46] LABS: ABSOLUTE LYMPHOCYTES# (MANUAL) 0.3 10^3/uL (0.5-4.7); ABSOLUTE MONOCYTES # (MANUAL) 0.7 10^3/uL (0.1-1.4); BAND NEUTROPHILS % (MANUAL) 1 % (3-5); BASOPHILS % (MANUAL) 0 % (0-2); EOSINOPHILS % (MANUAL) 1 % (0-6); LYMPHOCYTES % (MANUAL) 2 % (13-45); MONOCYTES % (MANUAL) 5 % (3-13); SEGMENTED NEUTROPHILS % (MAN) 91 % (42-78); TOTAL CELLS COUNTED 100
[2019-10-19 22:46] LABS: APPEARANCE,URINE CLEAR; BILIRUBIN,URINE NEGATIVE (NEGATIVE); COLOR,URINE YELLOW; GLUCOSE, URINE NEGATIVE (NEGATIVE); KETONES,URINE NEGATIVE (NEGATIVE); LEUKOCYTE ESTERASE,URINE NEGATIVE (NEGATIVE); NITRITE,URINE NEGATIVE (NEGATIVE); PROTEIN,URINE 30 mg/dL (NEGATIVE); URINE SPECIFIC GRAVITY 1.014; UROBILINOGEN,URINE NEGATIVE mg/dL (<2.0)
[2019-10-19 22:48] LABS: PLATELET COMMENT ADEQUATE; RBC MORPHOLOGY COMMENT NORMO-CYTIC/CHROMIC
--- NOTE | 2019-10-19 23:59 | RADIOLOGY REPORT (SQ) ---
EXAM DESCRIPTION: [facility]: CT ABDOMEN PELVIS WITH IV CONTRAST CLINICAL HISTORY: 59 years Male; abd pain; TECHNIQUE: CT of the abdomen and pelvis using intravenous contrast. All CT scans at this facility use dose modulation, iterative reconstruction, and/or weight based dosing when appropriate to reduce radiation dose to as low as reasonably achievable. COMPARISON: None. FINDINGS: Abdomen: Liver:No focal lesions. No intrahepatic ductal distention. Gallbladder:Nondistended Pancreas:Within normal limits Spleen:Within normal limits Right kidney: 1.4 cm cyst at the medial margin of the midportion. No hydronephrosis. Left kidney: 9 mm upper pole cyst. 10 mm lower pole cyst. No hydronephrosis. Adrenal glands:Within normal limits Vascular structures: Moderate atherosclerotic plaque. Distal abdominal aortic diameter is 3.3 cm. No retroperitoneal hematoma or adenopathy. Pelvis: Small bowel:No significant distention. Appendix:Within normal limits Colon:No distention or acute pericolonic edema. No free intraperitoneal fluid or air. Bones: No acute bone findings. Bladder: Unremarkable. No pelvic mass or adenopathy. IMPRESSION: 1. No acute findings 2. 3.3 cm abdominal aortic aneurysm. Recommend follow-up every 3 years.
[2019-10-20] MEDS ORDERED: NORMAL SALINE 1000 ML 1,000 ML IV ONE (01:42)
--- NOTE | 2019-10-20 01:42 | ER Document Report ---
Entered by RAÚL SALEH SCRIBE 10/20/19 0109 Acting as scribe for:KATHARINA BOBO IV, MD ED GI/ - General Chief Complaint: Abdominal Pain Stated Complaint: NAUSEA,HEADACHE,ABDOMINAL PAIN Time Seen by Provider: 10/19/19 21:39 Primary Care Provider: JEREMIAS RESENDEZ MD [Primary Care Provider] - Follow up as needed Notes: This 59 year old male patient presents to the emergency department today with complaints of nausea with associated diarrhea since waking up this morning. Patient states that he has felt like "something wanted to come up but nothing would", stating that he has not vomited today. Patient states that he went to take a nap this afternoon and after laying down he began getting abdominal cramping like he had to have a bowel movement. Patient states that when he went to the bathroom it was "just liquid coming out". Patient reports multiple episodes of diarrhea. Patient denies any abdominal pain. Patient complains of cold sweats and a headache as well. TRAVEL OUTSIDE OF THE [place] 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 denies: Abdominal pain, Vomiting Genitourinary: No symptoms reported Male Genitourinary: No symptoms reported Musculoskeletal: No symptoms reported Skin: No symptoms reported Hematologic/Lymphatic: No symptoms reported Neurological/Psychological: See HPI, Headaches -: Yes All other systems reviewed and negative Physical Exam - Vital signs Vitals: Temp Pulse Resp BP Pulse Ox 99.2 F 112 H 20 146/81 H 95 10/19/19 21:16 10/19/19 21:16 10/19/19 21:16 10/19/19 21:16 10/19/19 21:16 Interpretation: Normal - General General appearance: Appears well, Alert - HEENT Head: Normocephalic, Atraumatic Eyes: Normal Pupils: PERRL - Respiratory Respiratory status: No respiratory distress Chest status: Nontender Breath sounds: Normal Chest palpation: Normal - Cardiovascular Rhythm: Regular Heart sounds: Normal auscultation Murmur: No - Abdominal Inspection: Other - No pulsatile masses. No aaortic bruits. Distension: No distension Bowel sounds: Hyperactive Tenderness: Nontender Organomegaly: No organomegaly - Back Back: Normal, Nontender - Extremities General upper extremity: Normal inspection, Nontender. No: Edema General lower extremity: Normal inspection, Nontender. No: Edema - Neurological Neuro grossly intact: Yes Cognition: Normal Orientation: AAOx4 [place] Coma Scale Eye Opening: Spontaneous [place] Coma Scale Verbal: Oriented [place] Coma Scale Motor: Obeys Commands [place] Coma Scale Total: 15 Speech: Normal - Psychological Associated symptoms: Normal affect, Normal mood - Skin Skin Temperature: Warm Skin Moisture: Dry Skin Color: Normal Course - Re-evaluation Re-evalutation: 10/20/19 01:44 Findings of ED MSE, including finding of new 3.3 cm abdominal aortic aneurysm and need for every 6 month ultrasound follow-up discussed with patient. All questions were answered prior to discharge. Emergency signs and symptoms, reasons to return to the emergency department discussed with patient. - Vital Signs Vital signs: Temp Pulse Resp BP Pulse Ox 99.2 F 112 H 25 H 121/97 H 94 10/19/19 21:16 10/19/19 21:16 10/20/19 01:01 10/20/19 01:01 10/20/19 01:01 - Laboratory Result Diagrams: 10/19/19 22:00 10/19/19 22:00 Laboratory results interpreted by me: 10/19/19 10/19/19 10/19/19 22:00 22:00 22:05 WBC 14.0 H Seg Neuts % (Manual) 91 H Band Neutrophils % 1 L Lymphocytes % (Manual) 2 L Abs Neuts (Manual) 12.9 H Abs Lymphs (Manual) 0.3 L Glucose 160 H Total Protein 8.4 H Urine Protein 30 H - Diagnostic Test Radiology reviewed: Reports reviewed - EKG Interpretation by Me Additional EKG results interpreted by me: 10/20/19 01:47 EKG obtained on 10/19/2019 at 2310 hrs. was reviewed by this MD. Findings: Sinus tachycardia, rate 100, normal axis, P waves received QRS complexes, QRS complexes appear narrow, there are no obvious patterns of ST segment elevation or depression present to suggest acute myocardial ischemia or infarction. Impression sinus tachycardia with nonspecific ST segments. Discharge - Discharge Clinical Impression: Viral gastroenteritis, Abdominal aortic aneurysm (AAA) 3.0 cm to 5.5 cm in diameter in male Condition: Good Disposition: HOME, SELF-CARE Instructions: Antinausea Medication ([facility]), Gastroenteritis (adult) ([facility]) Additional Instructions: Return to the Emergency Department without delay if any worse. Aortic Aneurysm We have found an aortic aneurysm. This is a dilation of the aorta. About 1 of every 50 people develop an aortic aneurysm. The aneurysm can be dangerous if it begins to expand, or ruptures. At this time, there's no immediate danger. If an aortic aneurysm is small (less than two inches in width), we can just check the aneurysm again in a few months. Usually, we do this with an ultrasound or CT scan. If the aneurysm is large, the danger of rupture increases dramatically. Rupture is usually fatal. So large aneurysms are fixed with surgery. We'll arrange for you to see a specialist for repair of your aneurysm. Return at once if you develop abdominal pain, back pain, or lightheadedness, or if you feel a new mass in your abdomen. HOME CARE INSTRUCTIONS & INFORMATION: Thank you for choosing us for your medical needs. We hope you're satisfied with the care you received. After you leave, you must properly care for your problem and, at the same time, observe its progress. Any condition can change. Some illnesses can change rapidly over hours or days. If your condition worsens, return to the Emergency Department or see your physician promptly. ABOUT YOUR X-RAYS AND EKG'S: If you had an EKG or X-rays taken, they have been read by the Emergency Physician. The X-rays and EKG's will also be read by a Radiologist or Warehouse Checker within 24 hours. If discrepancies are noted, you will be notified by telephone. Please be certain the ED has a correct telephone number & address where you can be reached. Also, realize that some fractures or abnormalities do not show up on initial X-rays. If your symptoms continue, see your physician. ABOUT YOUR LABORATORY TEST: If you had laboratory tests, the results have been reviewed by the Emergency Physician. Some test results (for example cultures) may not be available for several days. You will be contacted if any test result shows you need additional treatment. Please be certain the ED has a correct telephone number and address where you can be reached. ABOUT YOUR MEDICATIONS: You will receive instructions on how to take your medicine on the prescription label you receive. Additional information may be provided by the Pharmacy. If you have questions afterwards, call the ED for clarification or further instructions. Some prescribed medications may cause drowsiness. Do not perform tasks such as driving a car or operating machinery without consulting your Pharmacist. If you feel you need a refill of pain medication, your condition will need re-evaluation. Please do not call for a refill of any medication. ABOUT YOUR SIGNATURE: Signature of this document acknowledges to followin. Understanding that you received emergency treatment and that you may be released before al medical problems are known or treated. Please be certain the ED has a correct phone number & address where you can be reached. 2. Acknowledgement that you will arrange for follow-up care as recommended. 3. Authorization for the Emergency Physician to provide information to your follow-up Physician in order to maximize your care. AT ANY TIME, IF YOUR SYMPTOMS CHANGE SIGNIFICANTLY OR WORSEN OR YOU DEVELOP NEW SYMPTOMS, RETURN TO THE EMERGENCY DEPARTMENT IMMEDIATELY FOR RE-EVALUATION. OUR GOAL IS TO PROVIDE EXCELLENT MEDICAL CARE! WE HOPE THAT WE HAVE MET YOUR EXPECTATIONS DURING YOUR EMERGENCY DEPARTMENT VISIT AND THAT YOU FEEL YOU HAVE RECEIVED EXCELLENT CARE! Prescriptions: Ondansetron [Zofran Odt 4 mg Tablet] 1 tab PO Q8HP PRN #[id number] tab.rapdis PRN Reason: For Nausea/Vomiting Forms: Return to Work Referrals: JEREMIAS RESENDEZ MD [Primary Care Provider] - 10/22/19 I personally performed the services described in the documentation, reviewed and edited the documentation which was dictated to the scribe in my presence, and it accurately records my words and actions.
[2019-10-20 03:39] VITALS: BP 140/90
--- NOTE | 2019-10-20 08:30 | EKG REPORT ---
SEVERITY:- OTHERWISE NORMAL ECG - SINUS TACHYCARDIA : Confirmed by: Jay Aldridge MD 20-Oct-2019 08:30:05
== END 2019-10-20 03:45 | disposition home or self-care (01) ==
LOC: ER 20:58
DX: A08.4 Viral intestinal infection, unspecified (principal); I71.4 Abdominal aortic aneurysm, without rupture; R10.9 Unspecified abdominal pain; R11.0 Nausea; R51 Headache; R19.7 Diarrhea, unspecified; Z87.891 Personal history of nicotine dependence; I25.10 Atherosclerotic heart disease of native coronary artery without angina pectoris; I10 Essential (primary) hypertension
CPT/HCPCS: 93005; 99284; 96361; 96374; 96375; 36415; 83690; 85025; 80053; 81001; 74177; 93010; J2270; J2405; J7030

== ENCOUNTER → 2019-11-07 | Outpatient (CLI) | payer OTHER, BC ==
[2019-11-07 08:34] LABS: ABSOLUTE BASOPHILS # (AUTO) 0.1 10^3/uL (0.0-0.2); ABSOLUTE EOSINOPHILS # (AUTO) 0.4 10^3/uL (0.0-0.6); ABSOLUTE LYMPHOCYTES (AUTO) 2.6 10^3/uL (0.5-4.7); ABSOLUTE MONOCYTES (AUTO) 0.9 10^3/uL (0.1-1.4); ABSOLUTE NEUT (AUTO) 4.1 10^3/uL (1.7-8.2); BASOPHILS % (AUTO) 1.4 % (0-2); EOSINOPHILS % (AUTO) 4.4 % (0-6); HEMATOCRIT 38.9 % (37.9-51.0); HEMOGLOBIN 13.4 g/dL (13.5-17.0); LYMPHOCYTES % (AUTO) 32.1 % (13-45); MEAN CORPUSCULAR HEMOGLOBIN 31.1 pg (27.0-33.4); MEAN CORPUSCULAR HGB CONC 34.4 g/dL (32.0-36.0); MEAN CORPUSCULAR VOLUME 91 fl (80-97); MONOCYTES % (AUTO) 11.1 % (3-13); PLATELET COUNT 274 10^3/uL (150-450); RED CELL DISTRIBUTION WIDTH 13.3 % (11.5-14.0); TOTAL CELLS COUNTED % (AUTO) 100 %; WHITE BLOOD COUNT 8.1 10^3/uL (4.0-10.5)
[2019-11-07 08:57] LABS: ALBUMIN 4.7 g/dL (3.5-5.0); ALKALINE PHOSPHATASE 99 U/L (38-126); ANION GAP 11 (5-19); ASPARTATE AMINO TRANSFERASE 32 U/L (17-59); BILIRUBIN,DIRECT 0.3 mg/dL (0.0-0.4); BILIRUBIN,TOTAL 0.4 mg/dL (0.2-1.3); BLOOD UREA NITROGEN 20 mg/dL (7-20); CALCIUM 9.9 mg/dL (8.4-10.2); CARBON DIOXIDE 26 mmol/L (22-30); CHLORIDE 102 mmol/L (98-107); CHOLESTEROL 288.44 mg/dL (0-200); GLUCOSE 98 mg/dL (75-110); POTASSIUM 5.3 mmol/L (3.6-5.0); TOTAL PROTEIN 8.4 g/dL (6.3-8.2); TRIGLYCERIDES 496 mg/dL (<150)
[2019-11-07 09:08] LABS: DIRECT LDL 159 mg/dL (<100)
== END ==
LOC: OD 07:04
PROVIDERS: ATTEND Specialist
DX: R07.9 Chest pain, unspecified (principal); I25.118 Atherosclerotic heart disease of native coronary artery with other forms of angina pectoris; R01.1 Cardiac murmur, unspecified; I71.4 Abdominal aortic aneurysm, without rupture; E78.5 Hyperlipidemia, unspecified; Z79.899 Other long term (current) drug therapy
CPT/HCPCS: 36415; 80048; 80061; 80076; 85025

== ENCOUNTER → 2020-05-13 | Outpatient (CLI) | payer BC ==
[2020-05-13 08:34] LABS: ALBUMIN 4.7 g/dL (3.5-5.0); ALKALINE PHOSPHATASE 75 U/L (38-126); ASPARTATE AMINO TRANSFERASE 37 U/L (17-59); BILIRUBIN,DIRECT 0.3 mg/dL (0.0-0.4); BILIRUBIN,TOTAL 0.7 mg/dL (0.2-1.3); CHOLESTEROL 262.14 mg/dL (0-200); TRIGLYCERIDES 206 mg/dL (<150)
[2020-05-13 08:46] LABS: DIRECT LDL 172 mg/dL (<100)
[2020-05-13 08:48] LABS: VLDL CHOLESTEROL 41.2 mg/dL (10-31)
== END ==
LOC: OD 07:02
PROVIDERS: ATTEND Specialist
DX: R07.9 Chest pain, unspecified (principal); I25.118 Atherosclerotic heart disease of native coronary artery with other forms of angina pectoris; R01.1 Cardiac murmur, unspecified; I71.4 Abdominal aortic aneurysm, without rupture; E78.5 Hyperlipidemia, unspecified; Z79.899 Other long term (current) drug therapy
CPT/HCPCS: 36415; 80061; 80076

== ENCOUNTER → 2020-06-14 | Outpatient (CLI) | payer BC ==
[2020-06-14 09:54] VITALS: BP 139/79
--- NOTE | 2020-06-14 09:54 | ER RDC ASSESSMENT REPORT ---
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 - Symptoms Subjective Fever([place] feverish): No Chills: No Muscule Aches: No Runny Nose: No Sore Throat: No Cough (New or worsening chronic cough): No Shortness of breath: No Nausea or Vomiting: No Headache: Yes Abdominal Pain: No Diarrhea(3 or more loose stools in last 24 hours): No - Do you have any of the following Chronic lung disease: Asthma or emphysema or COPD: No Cystic Fibrosis: No Diabetes: No High Blood Pressure: No Cardiovascular Disease: No Chronic Kidney Disease: No Chronic Liver Disease: No Chronic blood disorder like Sickle Cell Disease: No Weak immune system due to disease or medication: No Neurologic condition that limits movement: No Developmental delay - Moderate to Severe: No Recent (within past 2 weeks) or current : No Morbid Obesity (>100 pounds over ideal weight): No - Objective Temperature: 98.2 F Pulse Rate: 60 Respiratory Rate: 16 Blood Pressure: 139/79 O2 Sat by Pulse Oximetry: 97 Objective: Patient is a well-appearing 60-year-old man, who presents today for COVID-19 screening. Disposition: Home; Selfcare General - General Stated Complaint: Upper respiratory symptoms Mode of Arrival: Ambulatory Information source: Patient Notes: The patient was evaluated during the global COVID-19 pandemic. That diagnosis was suspected/considered upon initial presentation. Their evaluation, treatment, and testing was consistent with current guidelines for patients who present with complaints or symptoms that may be related to COVID-19. Patient reports having close contact exposure to a COVID-19 lab confirmed positive individual. - HPI Patient complains to provider of: Upper respiratory symptoms Onset: Last week Onset/Duration: Persistent Quality of pain: No pain Severity: None Pain Level: Denies Associated symptoms: Headache Exacerbated by: Denies Relieved by: Denies Similar symptoms previously: No Recently seen / treated by doctor: No - Related Data Allergies/Adverse Reactions: No Known Drug Allergies Allergy (Verified 05/23/17 19:50) Past Medical History - Social History Smoking Status: Former Smoker Cigarette use (# per day): No - Quit smoking 4 years ago Chew tobacco use (# tins/day): No Smoking Education Provided: Yes Frequency of alcohol use: Occasional Drug Abuse: None 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 Lives with: Family Family History: Reviewed & Not Pertinent Patient has suicidal ideation: No Patient has homicidal ideation: No - Past Medical History Cardiac Medical History: Reports: Hx Coronary Artery Disease, Hx Hypercholesterolemia, Hx Hypertension Denies: Hx Heart Attack Pulmonary Medical History: Denies: Hx Asthma, Hx Bronchitis, Hx COPD, Hx Pneumonia Neurological Medical History: Denies: Hx Cerebrovascular Accident, Hx Seizures Renal/ Medical History: Denies: Hx Peritoneal Dialysis Musculoskeletal Medical History: Denies Hx Arthritis Physical Exam - General General appearance: Appears well In distress: None Notes: PHYSICAL EXAMINATION: GENERAL: Well-appearing with No Acute Distress noted. HEAD: Atraumatic, Normocephalic. EYES: Sclera anicteric, Conjunctiva are pink and moist. ENT: Nares patent. Moist mucous membranes. NECK: Normal range of motion, supple without lymphadenopathy. LUNGS: CTAB and equal. No wheezes rales or rhonchi. HEART: Regular rate and rhythm without murmurs. ABDOMEN: Soft, nontender, normal bowel sounds, no guarding. EXTREMITIES: Normal range of motion, no pitting edema. No cyanosis. BACK: No midline or CVA tenderness. No step-off or deformity. NEUROLOGICAL: Cranial nerves grossly intact. Normal speech. Normal gait. PSYCH: Calm, Cooperative, and answers questions appropriately. Normal mood and affect. SKIN: Warm, Dry, Normal color and Turgor, No obvious lesions or rash noted. Diagnostic Results Laboratory Results: Patient notified of NEGATIVE results on Rapid Flu (A & B) and Rapid Strep. Advised Throat Culture and COVID testing are PENDING, and they will be notified of any POSITIVE culture results at a later date/time. Patient has been made aware that is currently taking 3 to 5 days for COVID test results, and that The [facility] will call to notify them of a POSITIVE COVID-19 test results and a member of the [facility] team will call to notify them of a NEGATIVE COVID-19 result. Patient aware they will be notified by phone, whether they have a NEGATIVE or POSITIVE COVID-19 result. Patient Education/Counseling Counseling/Education: Patient presents with upper respiratory symptoms worrisome for possible COVID- 19. Patient does not have symptoms worrisome as an emergency such as difficulty breathing, shortness of breath, chest pain, pressure, confusion or cyanosis. Patient appears suitable for discharge. Patient's vital signs are stable and patient is nontoxic in appearance. Good return precautions have been discussed with patient, patient verbalized understanding and is agreeable with discharge plan of care at this time. Patient provided COVID-19 discharge instructions to include: As a person under investigation for COVID-19, the [facility], division of public health advises you to adhere to the following guidance until your test results are reported to you. If your test result is positive, you will receive additional information from your provider and your local health department at that time. Remain at home until you are cleared by the health provider or public health authorities. Keep a log of visitors to your home, notify any visitors to your home of your isolation status. If you plan to move to a new address or leave the county, notify the local health department in your County. Call your doctor or seek care if you have an urgent medical need. Before seeking medical care, call ahead to get instructions from the provider before arriving at the medical office clinic or hospital. Notify them that you are being tested for the virus that causes COVID-19 so that arrangements can be made, as necessary, to prevent transmission to others in the healthcare setting. Next, notify the local health department in your county. If a medical emergency arises and you need to call 911, inform dispatch and the first responders that you are being tested for the virus that causes COVID-19. Next, notify the local health department in your county. Patient provided education on smoking cessation and the harmful effects of smoking, especially in the presence of Co-morbid conditions such as Hypertension, Diabetes, and/or other chronic illnesses. Patient verbalized understanding of smoking cessation education, and the increased health benefits of quitting. Guidance for worsening S/SX: For worsening symptoms, patient has been advised to contact their Primary Care Provider, or go to the nearest Emergency Department. RDC Discharge - Discharge Clinical Impression: COVID-19 Screening URI (upper respiratory infection) Qualifiers: URI type: unspecified URI Qualified Code(s): J06.9 - Acute upper respiratory infection, unspecified Condition: Stable Disposition: Home; Selfcare
[2020-06-14 12:34] LABS: A TYPE INFLUENZA AG NEGATIVE (NEGATIVE); B INFLUENZA AG NEGATIVE (NEGATIVE)
== END ==
LOC: RDC 08:57
PROVIDERS: ATTEND Nurse Practitioner Family
DX: J06.9 Acute upper respiratory infection, unspecified (principal); Z20.828 Contact with and (suspected) exposure to other viral communicable diseases; R51.9 Headache, unspecified; I25.10 Atherosclerotic heart disease of native coronary artery without angina pectoris; E78.00 Pure hypercholesterolemia, unspecified; I10 Essential (primary) hypertension
CPT/HCPCS: 87070; 87880; 87804; U0003; C9803; 87635

== ENCOUNTER → 2020-06-30 | Outpatient (CLI) | payer BC ==
[2020-06-30 14:51] LABS: ABSOLUTE BASOPHILS # (AUTO) 0.1 10^3/uL (0.0-0.2); ABSOLUTE EOSINOPHILS # (AUTO) 0.3 10^3/uL (0.0-0.6); ABSOLUTE LYMPHOCYTES (AUTO) 2.1 10^3/uL (0.5-4.7); ABSOLUTE MONOCYTES (AUTO) 0.7 10^3/uL (0.1-1.4); ABSOLUTE NEUT (AUTO) 5.9 10^3/uL (1.7-8.2); BASOPHILS % (AUTO) 0.8 % (0-2); EOSINOPHILS % (AUTO) 2.9 % (0-6); HEMATOCRIT 36.5 % (37.9-51.0); HEMOGLOBIN 12.4 g/dL (13.5-17.0); LYMPHOCYTES % (AUTO) 22.6 % (13-45); MEAN CORPUSCULAR HEMOGLOBIN 30.3 pg (27.0-33.4); MEAN CORPUSCULAR HGB CONC 33.9 g/dL (32.0-36.0); MEAN CORPUSCULAR VOLUME 89 fl (80-97); MONOCYTES % (AUTO) 8.2 % (3-13); PLATELET COUNT 238 10^3/uL (150-450); RED BLOOD COUNT 4.08 10^6/uL (4.35-5.55); RED CELL DISTRIBUTION WIDTH 13.1 % (11.5-14.0); SEGMENTED NEUTROPHILS % (AUTO) 65.5 % (42-78); TOTAL CELLS COUNTED % (AUTO) 100 %; WHITE BLOOD COUNT 9.1 10^3/uL (4.0-10.5)
[2020-06-30 14:59] LABS: PROTHROMBIN TIME 13.4 SEC (11.4-15.4)
[2020-06-30 15:00] LABS: PARTIAL THROMBOPLASTIN TIME 37.1 SEC (23.5-35.8)
[2020-06-30 15:19] LABS: ANION GAP 10 (5-19); BLOOD UREA NITROGEN 16 mg/dL (7-20); CARBON DIOXIDE 26 mmol/L (22-30); CHLORIDE 102 mmol/L (98-107); GLUCOSE 106 mg/dL (75-110); POTASSIUM 4.4 mmol/L (3.6-5.0)
== END ==
LOC: OD 13:24
PROVIDERS: ATTEND Specialist
DX: I25.118 Atherosclerotic heart disease of native coronary artery with other forms of angina pectoris (principal); R01.1 Cardiac murmur, unspecified; I71.4 Abdominal aortic aneurysm, without rupture; E78.5 Hyperlipidemia, unspecified; Z79.899 Other long term (current) drug therapy
CPT/HCPCS: 36415; 80051; 82565; 82947; 83735; 84520; 85025; 85610; 85730

== ENCOUNTER → 2020-07-29 | Outpatient (CLI) | payer BC ==
[2020-07-29 12:04] LABS: ABSOLUTE BASOPHILS # (AUTO) 0.1 10^3/uL (0.0-0.2); ABSOLUTE EOSINOPHILS # (AUTO) 0.4 10^3/uL (0.0-0.6); ABSOLUTE LYMPHOCYTES (AUTO) 2.1 10^3/uL (0.5-4.7); ABSOLUTE MONOCYTES (AUTO) 0.9 10^3/uL (0.1-1.4); ABSOLUTE NEUT (AUTO) 6.3 10^3/uL (1.7-8.2); BASOPHILS % (AUTO) 0.7 % (0-2); EOSINOPHILS % (AUTO) 4.1 % (0-6); HEMATOCRIT 36.7 % (37.9-51.0); HEMOGLOBIN 12.5 g/dL (13.5-17.0); LYMPHOCYTES % (AUTO) 21.5 % (13-45); MEAN CORPUSCULAR HGB CONC 34.1 g/dL (32.0-36.0); MEAN CORPUSCULAR VOLUME 91 fl (80-97); MONOCYTES % (AUTO) 9.1 % (3-13); PLATELET COUNT 252 10^3/uL (150-450); RED BLOOD COUNT 4.03 10^6/uL (4.35-5.55); RED CELL DISTRIBUTION WIDTH 13.1 % (11.5-14.0); SEGMENTED NEUTROPHILS % (AUTO) 64.6 % (42-78); TOTAL CELLS COUNTED % (AUTO) 100 %; WHITE BLOOD COUNT 9.8 10^3/uL (4.0-10.5)
[2020-07-29 12:13] LABS: INTERNATIONAL RATION (INR) 0.91; PROTHROMBIN TIME 12.5 SEC (11.4-15.4)
[2020-07-29 12:14] LABS: PARTIAL THROMBOPLASTIN TIME 35.4 SEC (23.5-35.8)
[2020-07-29 12:34] LABS: ANION GAP 7 (5-19); BLOOD UREA NITROGEN 14 mg/dL (7-20); CARBON DIOXIDE 29 mmol/L (22-30); CHLORIDE 103 mmol/L (98-107); GLUCOSE 104 mg/dL (75-110); POTASSIUM 4.9 mmol/L (3.6-5.0)
== END ==
LOC: OD 10:15
PROVIDERS: ATTEND Specialist
DX: I25.118 Atherosclerotic heart disease of native coronary artery with other forms of angina pectoris (principal); R01.1 Cardiac murmur, unspecified; I71.4 Abdominal aortic aneurysm, without rupture; E78.5 Hyperlipidemia, unspecified; Z79.899 Other long term (current) drug therapy
CPT/HCPCS: 36415; 80051; 82565; 82947; 83735; 84520; 85025; 85610; 85730